=== PATIENT | female | born 1970 | race Caucasian/White ===

== ENCOUNTER → 2022-03-31 | Day surgery (SDC) | payer OTHER ==
[~2022-03-31] VITALS: Ht 165.1 cm; Wt 81.6 kg
[~2022-03-31] MED LIST: ALLEGRA PO; FLONASE IH; FOLIC ACID PO; FUSION PLUS CA1 EACH PO; PREDNISONE PO; SINGULAIR10 MG PO
== END | disposition home or self-care (01) ==
LOC: ADM 03-29 15:15 → CIR.AMB 03-29 15:15
PROVIDERS: ATTEND Specialist
DX: T85.44XA Capsular contracture of breast implant, initial encounter (principal); Z88.8 Allergy status to other drugs, medicaments and biological substances; J45.909 Unspecified asthma, uncomplicated